=== PATIENT | female | born 2000 | race Two or more races ===

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

== ENCOUNTER → 2023-04-10 | Outpatient (REF) | payer OTHER ==
[~2023-04-10] MED LIST changes: -CEFD1CAP8 PO; +CEFD1CAP9 PO
[2023-04-10 20:12] LABS: CHLAMYDIA DNA AMPLIFICATION NEGATIVE (NEGATIVE); GC DNA AMPLIFICATION NEGATIVE (NEGATIVE)
== END ==
LOC: M SFHCWAGY 17:22
PROVIDERS: ATTEND Nurse Practitioner Family
DX: Z12.4 Encounter for screening for malignant neoplasm of cervix (principal); Z11.3 Encounter for screening for infections with a predominantly sexual mode of transmission
CPT/HCPCS: 87624; 87661; 87810; 87850; G0123

== ENCOUNTER 2023-11-14 22:28 | Emergency (ER) | payer OTHER ==
[~2023-11-14] VITALS: Ht 160 cm; Wt 66.8 kg
[2023-11-14 23:48] LABS: BASO # 0.1 10^3/uL (0.0-0.2); BASO % 0.4 % (0.0-1.0); EOS % 0.1 % (0.0-3.0); HEMATOCRIT 34.7 % (36.0-47.0); HEMOGLOBIN 11.4 g/dl (12.0-15.5); LYMPH # 3.7 10^3/uL (1.5-5.0); LYMPH % 26.4 % (24.0-44.0); MEAN CORPUSCULAR HEMOGLOBIN 29.1 pg (27.0-33.0); MEAN CORPUSCULAR HGB CONC 32.9 g/dl (32.0-36.5); MEAN CORPUSCULAR VOLUME 88.5 fl (80.0-96.0); MONO # 1.2 10^3/uL (0.0-0.8); MONO % 8.9 % (2.0-8.0); NEUTROPHILS # 8.9 10^3/uL (1.5-8.5); NEUTROPHILS % 63.8 % (36.0-66.0); PLATELET COUNT, AUTOMATED 264 10^3/uL (150-450); RED BLOOD COUNT 3.92 10^6/uL (4.00-5.40); VENOUS BASE EXCESS 0.8 (-2.0-2.0); VENOUS O2 SATURATION 63.1 % (60.0-80.0); VENOUS PARTIAL PRESSURE CO2 43.9 mmHg (38.0-50.0); VENOUS PARTIAL PRESSURE O2 33.1 mmHg (30.0-50.0); VENOUS STANDARD HCO3 24.4 MMOL/L; VENOUS TOTAL CO2 27.3 MMOL/L (24.0-28.0); WHITE BLOOD COUNT 13.9 10^3/uL (4.0-10.0)
[2023-11-14 23:50] LABS: AMYLASE 40 U/L (30-118); HCG, SERUM QUALITATIVE NEGATIVE (NEGATIVE)
[2023-11-14 23:51] LABS: ALBUMIN 3.7 G/DL (3.2-5.2); ALKALINE PHOSPHATASE 58 U/L (46-116); ALT/SGPT 15 U/L (7.0-40); AST/SGOT 13 U/L (<34); BILIRUBIN,DIRECT 0.3 MG/DL (<0.4); BILIRUBIN,TOTAL 0.8 MG/DL (0.3-1.2); BLOOD UREA NITROGEN 10 MG/DL (9-23); CALCIUM LEVEL 8.5 MG/DL (8.5-10.1); CARBON DIOXIDE LEVEL 27 MMOL/L (20-31); CHLORIDE LEVEL 103 MMOL/L (98-107); CREATININE FOR GFR 0.63 MG/DL (0.55-1.30); GLOMERULAR FILTRATION RATE > 60.0 (>60); GLUCOSE, FASTING 108 MG/DL (60-100); POTASSIUM SERUM 3.9 MMOL/L (3.5-5.1); SODIUM LEVEL 135 MMOL/L (136-145); TOTAL PROTEIN 7.2 G/DL (5.7-8.2)
[2023-11-14 23:58] LABS: PROCALCITONIN 0.05 ng/ml
[2023-11-15] MEDS: NS 1,000 ML IV ONE (00:07)
[2023-11-15] MEDS: ACETAMINOPHEN TAB 650MG DOSE (2X325MG) PO ONE (00:07)
[2023-11-15 03:00] LABS: APPEARANCE, URINE CLEAR (CLEAR); BACTERIA, URINE AUTO NEGATIVE (NEGATIVE); BILIRUBIN, URINE AUTO NEGATIVE (NEGATIVE); BLOOD, URINE BLOOD NEGATIVE (NEGATIVE); COLOR, URINE YELLOW (YELLOW); GLUCOSE, URINE (UA) AUTO NEGATIVE (NEGATIVE); KETONE, URINE AUTO NEGATIVE (NEGATIVE); LEUKOCYTE ESTERASE, URINE AUTO NEGATIVE (NEGATIVE); NITRITE, URINE AUTO NEGATIVE (NEGATIVE); PROTEIN, URINE AUTO NEGATIVE (NEGATIVE); RBC, URINE AUTO 0 /HPF (0-3); SPECIFIC GRAVITY URINE AUTO 1.006 (1.002-1.035); SQUAMOUS EPITHELIAL CELL UR AU 1 /HPF (0-6); UROBILINOGEN, URINE AUTO 0.2 mg/dL (0.0-2.0); WBC, URINE AUTO 0 /HPF (0-3)
[2023-11-15] MEDS: DALBAVANCIN 1,500 MG in D5W 250 ML IV ONE (04:54)
[2023-11-15 05:33] VITALS: BP 121/59; TEMP 98; O2SAT 100
== END 2023-11-15 05:42 | disposition home or self-care (01) ==
LOC: EDBD 22:28 → M ED 22:28
DX: L02.411 Cutaneous abscess of right axilla (principal)
CPT/HCPCS: 71045; 80048; 80076; 81001; 82150; 82803; 83605; 84145; 84703; 85025; 86140; 87040; 87070; 87077; 87088; 87186; 93005; 93041; 94760; 96361; 96365; 99285; J0875